=== PATIENT | male | born 1970 | race Caucasian/White ===

== ENCOUNTER 2024-01-16 11:36 | Observation (INO) | payer BC ==
[2024-01-15 12:25] LABS: Absolute Basophils 0.1 K/uL (0-0.5); Absolute Eosinophils 0.1 K/uL (0-0.5); Absolute Lymphocytes (CBC) 2.2 K/uL (0.7-4.9); Absolute Monocytes 0.3 K/uL (0.1-1.3); Absolute Neutrophil 4.6 K/uL (1.8-8.0); Basophils % 0.8 % (0-1.3); Eosinophils % 1.6 % (0-4.4); Hematocrit 43.7 % (39.6-49.0); Hemoglobin 14.9 g/dL (13.6-17.9); Lymphocytes % 30.5 % (15.3-44.8); MCH 30.7 pg (27.0-35.0); MCHC 34.1 g/dL (32.0-36.0); MCV 89.8 fL (80-100); MPV 7.5 fL (7.6-11.3); Monocytes % 4.7 % (3.3-12.3); Neutrophils % 62.4 % (41.7-73.7); Nucleated Red Blood Cells % 0.4 % (0-0); Platelets 298 thou/uL (152-406); RBC Red Blood Cell Count 4.87 M/uL (4.33-5.43); Red Cell Distribution Width 13.1 % (12.1-15.2)
[2024-01-15 13:04] LABS: Anion Gap 8.2 mEq/L (5.0-15.0); Potassium 4.2 mEq/L (3.5-5.1)
--- NOTE | 2024-01-15 16:50 | EKG ---
Test Date: 2024-01-15 Test Time: 12:21:17 [employer] Machine: [place] MEASUREMENT RESULTS: Intervals: Rate: 66 WV: 156 QRSD: 84 QT: 380 QTc: 398 [place]: P: 17 WV: 156 QRS: 17 T: 29 INTERPRETIVE STATEMENTS: Normal sinus rhythm Normal ECG No previous ECG available for comparison Electronically Signed On 01-15-24 16:49:50 CDT by Benitez Capps
[2024-01-16] MEDS: CEFAZOLIN SODIUM 2 GM/VIAL ONE (11:54)
[2024-01-16] MEDS: NA CHLORIDE 0.9% 1,000 ML ONE ×3 (11:54→16:09)
[2024-01-16] MEDS ORDERED: propofoL 200 MG/20 ML VIAL IV ONE (12:37)
[2024-01-16] MEDS ORDERED: MIDAZOLAM HCL 2 MG/2 ML INJ ONE (12:37)
[2024-01-16] MEDS ORDERED: ROCURONIUM 50 MG/5 ML VIAL IV ONE ×2 (12:37→15:13)
[2024-01-16] MEDS ORDERED: FENTANYL CITR 100 MCG/2 ML ONE (12:37)
[2024-01-16] MEDS ORDERED: LIDOCAINE 2% MPF 5 ML VIAL ONE (12:37)
[2024-01-16] MEDS ORDERED: ONDANSETRON 4 MG/2 ML VIAL ONE (12:37)
[2024-01-16] MEDS: HYDROMORPHONE HCL 1 MG/ML INJ ONE ×3 (12:44→16:09)
[2024-01-16] MEDS: SUGAMMADEX SODIUM 200 MG/2 ML VIAL IV ONE (12:44)
[2024-01-16] MEDS ORDERED: dexAMETHasone 10 MG/ML VIAL ONE (13:35)
[2024-01-16] MEDS ORDERED: GLYCOPYRROLATE 0.2 MG/ML SYR ONE ×2 (13:36→15:30)
[2024-01-16] MEDS ORDERED: EPHEDRINE SULF 50 MG/ML VIAL ONE (13:37)
[2024-01-16] MEDS: LIDOCAINE HCL/EPINEPHRINE 20 ML MDV ONE (13:59)
[2024-01-16] MEDS ORDERED: NEOSTIGMINE 1 MG/ML -10 ML VIAL ONE (15:30)
[2024-01-16] MEDS: ONDANSETRON 4 MG/2 ML VIAL ONE (15:59)
--- NOTE | 2024-01-16 16:02 | P.OP ---
Preoperative diagnosis: Multiple incisional ventral hernias Postoperative diagnosis: Multiple incisional ventral hernias Primary procedure: Laparoscopic ventral hernia repair with mesh Secondary procedure: Laparoscopic adhesiolysis > 2hrs Anesthesia: GETA + Local Estimated blood loss: <5cc Specimen: None Findings: Severe dense small bowel adhesions Complications: None Implants: Bard Ventralite ST [id number], Sorbafix x 75 Transferred to: Recovery Room Condition: Good
[2024-01-16 16:32] VITALS: O2SAT 98
[2024-01-16 16:58] VITALS: BMI 31.4
[2024-01-16] MEDS: METRONIDAZOLE 500mg IVPB 500 MG/100 ML BAG IV ONE (17:29)
[2024-01-16] MEDS: D5.45NS W/KCL 20MEQ 1,000 ML IV SCH (17:30)
[2024-01-16] MEDS: HYDROCODONE/APAP 7.5/325 MG TAB PO PRN (17:56)
[2024-01-16] MEDS: Ciprofloxacin 200mg IV 200 MG/100 ML IV.SOLN. IV SCH (18:15)
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
[2024-01-16] MEDS: carvediloL 12.5 MG TAB PO SCH (21:00)
[2024-01-16] MEDS: DULOXETINE 30 MG CAP PO SCH (21:02)
[2024-01-16] MEDS: PREGABALIN 75 MG CAP PO SCH (21:03)
[2024-01-16] MEDS: QUETIAPINE 25 MG TAB PO SCH (21:03)
[2024-01-16] MEDS: clonazePAM 0.5 MG TAB PO PRN (21:08)
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
[2024-01-17 08:57] VITALS: BP 119/69; TEMP 98
[2024-01-17] MEDS: PANTOPRAZOLE 40MG TABLET PO SCH (09:32)
[2024-01-17] MEDS: LOSARTAN POTASSIUM 50 MG TABLET PO SCH (09:32)
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
== END 2024-01-17 11:13 | disposition home or self-care (01) ==
LOC: OR 11:36 → 2ND 16:14
PROVIDERS: ADMIT Surgery; ATTEND Surgery
PROC: 0DNW4ZZ Release Peritoneum, Percutaneous Endoscopic Approach (ICD-10-PCS; 2024-01-16)
PROC: 0WUF4JZ Supplement Abdominal Wall with Synthetic Substitute, Percutaneous Endoscopic Approach (ICD-10-PCS; principal; 2024-01-16 13:15)
DX: K43.2 Incisional hernia without obstruction or gangrene (principal); K66.0 Peritoneal adhesions (postprocedural) (postinfection); F43.10 Post-traumatic stress disorder, unspecified; I10 Essential (primary) hypertension; K21.9 Gastro-esophageal reflux disease without esophagitis; G47.33 Obstructive sleep apnea (adult) (pediatric); E66.9 Obesity, unspecified; G62.9 Polyneuropathy, unspecified; R73.03 Prediabetes; Z68.34 Body mass index [BMI] 34.0-34.9, adult; Z88.0 Allergy status to penicillin; Z88.2 Allergy status to sulfonamides; Z88.5 Allergy status to narcotic agent
CPT/HCPCS: 93005; 85025; 80048; 36415; 82947 ×5; 94010; 49595; 44180; J2704; J2710; J2001; J2250; J3010; J1100; J0744; J1170 ×3; J2405 ×2; J7030 ×3; G0378; G0379